=== PATIENT | female | born 1975 | race Caucasian/White ===

== ENCOUNTER 2018-02-20 05:52 | Day surgery (SDC) | payer BC ==
[2018-02-20] MEDS ORDERED: Dextrose 5%-Lactated Ringers 1,000 ML IV SCH (06:45)
[2018-02-20] MEDS ORDERED: Glycopyrrolate 0.2 MG/ML 2 ML SDV IVPUSH ONE (06:45)
[2018-02-20] MEDS ORDERED: fentaNYL 100 MCG/2 ML SDV ONE (07:03)
[2018-02-20] MEDS ORDERED: Propofol 200 MG/20 ML SDV ONE (07:03)
[2018-02-20] MEDS ORDERED: Midazolam 1 MG/ML 2 ML SDV ONE (07:03)
--- NOTE | 2018-03-01 13:37 | OR ---
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 POSTOPERATIVE DIAGNOSIS: Weight regain status post Mike-en-Y gastric bypass secondary to a very large gastric pouch and widened gastrojejunostomy. OPERATIVE PROCEDURE: Upper GI endoscopy with biopsies of gastric pouch for CLOtest. ANESTHESIA: IV sedation. INDICATIONS FOR PROCEDURE: This is a 42-year-old female who is status post Mike-en-Y gastric bypass, done by Dr. Victor in [facility] in 2007. Her initial weight was 409 pounds. She did get down to around 270 pounds and over the last 2 to 3 years has gained significant weight despite ongoing efforts to avoid weight loss in terms of dietary management. The plan is to proceed with upper GI endoscopy to evaluate the patient's current anatomy, to see if there is something correctable in terms of the gastric bypass. Potential risks of the procedure including bleeding and perforation were discussed, and the patient wishes to proceed. DETAILS OF PROCEDURE: The patient was taken to the operating room and placed in the left lateral decubitus position. IV sedation was administered, after which the upper GI endoscope was passed orally through the length of the esophagus and into the gastric pouch, and then through the gastrojejunostomy, roughly 20 cm into the Mike limb. Findings included normal hypopharynx, larynx, upper esophageal sphincter, and esophageal body. As one passed into the area of the EG junction and from there into the gastric pouch, the gastric pouch was noted to be strikingly enlarged from the gastrojejunostomy up to this mucosal-esophagogastric junction. This measured 12 cm. The gastrojejunostomy was also very widened, measuring around 6 cm. Given this, the patient, at this point, has lost any significant restriction component to the gastric bypass. There was very slight redness in the gastric pouch, likely related to the elevated mass. Biopsies were obtained from the gastric pouch and sent for CLOtest for H. pylori. Minimal bleeding from the biopsy site was seen and the procedure then concluded. The patient was taken to the recovery room in a satisfactory condition. The patient would appear to be a very good candidate for a re-visional procedure. This would amount to reduction of the gastric pouch to the roughly 10 to 15 mL volume size as well as revision of the small bowel to provide more in the way of malabsorption. We will contact the patient's insurance regarding prior authorization for this procedure. Alberto Pinzon MD /[id number]
== END 2018-02-20 09:27 | disposition home or self-care (01) ==
LOC: JP.SDS 05:52
PROVIDERS: ATTEND Surgery
DX: R63.5 Abnormal weight gain (principal); Z98.84 Bariatric surgery status; Z88.5 Allergy status to narcotic agent; Z88.8 Allergy status to other drugs, medicaments and biological substances
CPT/HCPCS: 43239; 81025; 87081; J2250; J2704; J3010; J3490; J7042

== ENCOUNTER 2020-08-25 06:40 | Day surgery (SDC) | payer BC ==
[2020-08-25] MEDS ORDERED: Cyanocobalamin (Vitamin B12) 1,000 MCG/ML SDV IM ONE (07:15)
[2020-08-25] MEDS ORDERED: Lactated Ringers 1,000 ML IV ONE (07:15)
[2020-08-25] MEDS ORDERED: fentaNYL 100 MCG/2 ML SDV ONE (07:27)
[2020-08-25] MEDS ORDERED: Midazolam 1 MG/ML 2 ML SDV ONE (07:27)
[2020-08-25] MEDS ORDERED: Propofol 200 MG/20 ML SDV ONE (07:27)
[2020-08-25] MEDS ORDERED: Glycopyrrolate 0.2 MG/ML 2 ML SDV IVPUSH ONE (08:00)
[2020-08-25] MEDS ORDERED: MVI, Adult with Vitamin K 10 ML, Thiamine 200 MG, Zinc/Copper/Manganese/Selenium 1 ML i... IV ONE ×4 (08:15)
--- NOTE | 2020-08-27 13:05 | OR ---
DATE OF PROCEDURE: 08/25/2020 SURGEON: Alberto Pinzon MD PREOPERATIVE DIAGNOSIS: Reflux symptoms, status post Mike-en-Y gastric bypass. POSTOPERATIVE DIAGNOSIS: Reflux symptoms, status post Mike-en-Y gastric bypass with normal exam other than for scant amount of bile at and around the gastrojejunostomy. OPERATIVE PROCEDURE: Upper GI endoscopy. ANESTHESIA: IV sedation. INDICATIONS FOR PROCEDURE: This is a 44-year-old female presenting with some reflux and occasionally coughing of apparently aspirated material, status post Mike-en-Y gastric bypass. The patient had original Mike-en-Y gastric bypass in [place] in 2007, and a revision in [facility] [facility] in April 2018. Presently, she is on omeprazole 40 mg a day. Plan is to proceed with upper GI endoscopy with biopsies as indicated. Potential risks including bleeding and perforation were discussed, and the patient wishes to proceed. DETAILS OF PROCEDURE: The patient was taken to the operating room and placed in a left lateral decubitus position. IV sedation was administered, after which the upper GI endoscope was passed orally through the length of the esophagus into the gastric pouch and from there through the gastrojejunostomy roughly 20 cm into the Mike limb. FINDINGS: Included normal hypopharynx, larynx, upper esophageal sphincter, and esophageal body. At the EG junction, no significant inflammation was present, and likewise the pouch was normally sized and associated with significant inflammation. The gastrojejunostomy was not stenotic and likewise showing little in the way of inflammation. The only positive finding in this case would be a scant amount of bile present at and around the esophagogastric junction. No bowel was present more distally within the Mike limb which was otherwise normal. Scope was then withdrawn and the above findings reconfirmed. During the examination, careful examination trying to identify if there is any gastrogastric fistula which might explain the bile was undertaken, none could be seen. Likewise, there did not appear to be any significant bile further distal in the Mike limb, although this may have been in the areas where there was somewhat better forward motility than in the esophagogastric junction. So, differential diagnosis in this case could include a gastrogastric fistula that is not identifiable endoscopically due to the angulation of the orifice and such versus a partial small bowel obstruction resulting in some intermittent backup of bile. Plan will be to give the patient a trial of Pepto-Bismol to take when she is feeling any kind of reflux-type symptoms to see if that is helpful. Otherwise, she will be set up for virtual appointment with Angelica Hummel PA-C in roughly 1 month. If symptoms persist, the next step would likely be a CT scan of the abdomen and pelvis with IV and oral contrast to look for signs of GG fistula or partial small bowel obstruction. Ultimately, if the symptoms persist without the diagnosis, one might consider laparotomy for presumed diagnosis of partial small bowel obstruction. Alberto Piznon MD /[id number]
== END 2020-08-25 10:40 | disposition home or self-care (01) ==
LOC: JP.SDS 06:40
PROVIDERS: ATTEND Surgery
DX: K21.9 Gastro-esophageal reflux disease without esophagitis (principal); Z98.84 Bariatric surgery status; Z93.8 Other artificial opening status; E66.9 Obesity, unspecified; Z68.41 Body mass index [BMI] 40.0-44.9, adult
CPT/HCPCS: 43235; 81025; J2250; J2704; J3010; J3411; J3420; J3490; J7120